=== PATIENT | female | born 1995 | race Caucasian/White ===

== ENCOUNTER 2021-02-19 10:52 | Emergency (ER) | payer OTHER ==
[~2021-02-19] VITALS: Ht 160 cm; Wt 71.2 kg
[2021-02-19] MEDS ORDERED: TRILEPTAL150 MG (11:17)
[2021-02-19] MEDS ORDERED: KEPPRA250 MG (11:17)
[2021-02-19] MEDS ORDERED: ZOLOFT50 MG (11:18)
[2021-02-19] MEDS ORDERED: ONDANSETRON ODT8 MG PO (12:19)
[2021-02-19] MEDS ORDERED: MOTION RELIEF25 MG PO (12:19)
== END 2021-02-19 13:09 | disposition home or self-care (01) ==
LOC: ED 10:52
DX: R42 Dizziness and giddiness (principal); H65.01 Acute serous otitis media, right ear; G40.909 Epilepsy, unspecified, not intractable, without status epilepticus; Z79.899 Other long term (current) drug therapy
CPT/HCPCS: 80053; 85025; 96374; 99283-25; J2405; J7030